=== PATIENT | male | born 1965 | race Caucasian/White ===

== ENCOUNTER → 2016-07-29 | Outpatient (REF) | payer MEDICARE ==
[~2016-07-29] MED LIST: /ACETCOD2T PO; /AMLO25TA PO; /BACL20TA PO; AUGM875T27 PO; CALCTAB52 PO; CYMB1CAP PO; FOLI1TAB86 PO; KEPP500T4 PO; LIPI20TA PO; LISI5TAB PO; MAXA5TAB10 PO; NEUR600T PO; XANA0.25 PO; XANA0.5T PO
[2016-07-29 12:46] LABS: CALCIUM LEVEL 8.6 MG/DL (8.5-10.1); CREATININE FOR GFR 1.36 MG/DL (0.70-1.30); GLOMERULAR FILTRATION RATE 58.8 (>56); MAGNESIUM LEVEL 1.9 MG/DL (1.8-2.4)
== END ==
LOC: M SFHCLERA 08:49
PROVIDERS: ATTEND Family Medicine
DX: E87.6 Hypokalemia (principal); E83.42 Hypomagnesemia

== ENCOUNTER → 2016-10-08 | Outpatient (CLI) | payer MEDICARE ==
--- NOTE | 2016-10-11 07:44 | SLEEPHOME ---
DATE OF PROCEDURE: 10/08/2016 ORDERED BY: Ember Landis Diagnostic home sleep testing was performed due to concern for the obstructive sleep apnea syndrome in this patient with a history of excessive somnolence. For testing, a NOX-T3 respiratory monitoring device was used. Continuous record was made of pulse, oxygen saturation, air flow, chest, abdominal strain and body position. 7 hours and 59 minutes of data were reviewed. 7 hours and 55 minutes were marked as time in bed. During the interval marked time in bed, there were 16 respiratory events identified of 10 seconds in duration or greater for a respiratory event index of 2. The events were more central in character. Baseline pulse rate 55 beats per minute. Pulse rate ranged 41 to 88. Baseline saturation 95%. There was one reading of saturation 84%. This may have been artifactual. Testing was performed in both the supine and nonsupine positions. IMPRESSION: Borderline home sleep test with some respiratory patterning. RECOMMENDATION: The frequency of events was insufficient to support a diagnosis of obstructive sleep apnea syndrome; however, home testing has been known to underestimate the severity of disease. If the patient's symptoms are persistent, referral for formal in-laboratory diagnostic sleep testing is more sensitive. Copy To: Dr. Jose L Russell
== END ==
LOC: M SLEEP HO 09:45
PROVIDERS: ATTEND Nurse Practitioner Adult Health
DX: G47.30 Sleep apnea, unspecified (principal)

== ENCOUNTER → 2017-05-28 | Outpatient (CLI) | payer MEDICARE | LOC: M RAD 10:40 | DX: M25.552 Pain in left hip (principal) | CPT/HCPCS: 73502 ==

== ENCOUNTER → 2017-11-17 | Outpatient (REF) | payer MEDICARE ==
[2017-11-17 20:18] LABS: HEMATOCRIT 47.5 % (42.0-52.0); HEMOGLOBIN 16.1 g/dl (13.5-17.5); MEAN CORPUSCULAR HEMOGLOBIN 32.4 pg (27.0-33.0); MEAN CORPUSCULAR HGB CONC 33.9 g/dl (32.0-36.5); MEAN CORPUSCULAR VOLUME 95.6 fl (80.0-96.0); PLATELET COUNT, AUTOMATED 275 10^3/uL (150-450); RED BLOOD COUNT 4.97 10^6/uL (4.30-6.10); RED CELL DISTRIBUTION WIDTH 12.2 % (11.5-14.5); WHITE BLOOD COUNT 8.5 10^3/uL (4.0-10.0)
[2017-11-17 20:21] LABS: ESTIMATED AVERAGE GLUCOSE 114 MG/DL (60-110); HEMOGLOBIN A1c 5.6 %
[2017-11-17 20:26] LABS: ALBUMIN 4.3 GM/DL (3.2-5.2); ALBUMIN/GLOBULIN RATIO 1.19 (1.00-1.93); ALKALINE PHOSPHATASE 103 U/L (45-117); ALT/SGPT 37 U/L (12-78); ANION GAP 9 MEQ/L (8-16); AST/SGOT 31 U/L (7-37); BILIRUBIN,TOTAL 0.4 MG/DL (0.2-1.0); BLOOD UREA NITROGEN 8 MG/DL (7-18); CALCIUM LEVEL 9.2 MG/DL (8.5-10.1); CARBON DIOXIDE LEVEL 29 MEQ/L (21-32); CHLORIDE LEVEL 103 MEQ/L (98-107); CHOLESTEROL LEVEL 267 MG/DL (<200); CHOLESTEROL RISK RATIO 7.852 (<5); CREATININE FOR GFR 1.41 MG/DL (0.70-1.30); GLUCOSE, FASTING 76 MG/DL (70-100); HDL CHOLESTEROL 34 MG/DL (>40); LDL CHOLESTEROL 159.6 MG/DL (<100); NON-HDL-C 233 MG/DL; POTASSIUM SERUM 4.7 MEQ/L (3.5-5.1); SODIUM LEVEL 141 MEQ/L (136-145); TOTAL PROTEIN 7.9 GM/DL (6.4-8.2); TRIGLYCERIDES LEVEL 367 MG/DL (<150)
[2017-11-17 20:39] LABS: CREATININE, URINE 74.2 MG/DL; MALB URINE SIEMENS 15.9 MG/L; MAU/CREAT RATIO 21.4 MCG/MG (0.0-30.0)
[2017-11-17 21:55] LABS: ERYTHROCYTE SEDIMENTATION RATE 11 mm/hr (0-20)
== END ==
LOC: M SFHCLERA 15:23
DX: I10 Essential (primary) hypertension (principal); M06.9 Rheumatoid arthritis, unspecified; M79.2 Neuralgia and neuritis, unspecified; R09.89 Other specified symptoms and signs involving the circulatory and respiratory systems
CPT/HCPCS: 84443

== ENCOUNTER → 2017-12-18 | Outpatient (REF) | payer MEDICARE ==
[2017-12-18 19:38] LABS: CPK CREATINE PHOSPHOKINASE 289 U/L (39-308)
[2017-12-18 19:38] LABS: URIC ACID 3.6 MG/DL (3.5-7.2)
[2017-12-18 20:02] LABS: ERYTHROCYTE SEDIMENTATION RATE 6 mm/hr (0-20)
[2017-12-25 00:06] LABS: ANGIOTENSIN 1 CONVERTING ENZYM 8 U/L (14-82); HLA-B27 Negative (.)
[2017-12-25 00:06] LABS: ALDOLASE 8.5 U/L (3.3-10.3)
== END ==
LOC: M SFHCLERA 09:54
DX: R76.8 Other specified abnormal immunological findings in serum (principal)
CPT/HCPCS: 82550

== ENCOUNTER → 2017-12-29 | Outpatient (REF) | payer MEDICARE ==
[2017-12-29 17:33] LABS: RHEUMATOID FACTOR QUANT < 10.0 IU/ML (<15.0)
[2018-01-01 00:08] LABS: CYCLIC CITRULLINATED PEPTIDE 13 units (0-19)
[2018-01-01 00:08] LABS: ANA (HEP2) Positive (.); ANTI DOUBLE STRAND-DNA AB 3 IU/mL (0-9); RNP ANTIBODY < 0.2 AI (0.0-0.9); SMITHS ANTIBODY < 0.2 AI (0.0-0.9); SSA SJOGRENS A <0.2 AI (0.0-0.9); SSB SJOGRENS B <0.2 AI (0.0-0.9)
== END ==
LOC: M SFHCLERA 11:03
DX: R76.8 Other specified abnormal immunological findings in serum (principal)
CPT/HCPCS: 86255

== ENCOUNTER → 2018-03-04 | Outpatient (REF) | payer MEDICARE ==
[2018-03-04 11:14] LABS: APPEARANCE, URINE CLEAR (CLEAR); BACTERIA, URINE AUTO NEGATIVE (NEGATIVE); BASO % 0.4 % (0.0-1.0); BILIRUBIN, URINE AUTO NEGATIVE (NEGATIVE); BLOOD, URINE BLOOD NEGATIVE (NEGATIVE); COLOR, URINE STRAW (YELLOW); EOS # 0.1 10^3/uL (0.0-0.50); EOS % 1.5 % (0.0-3.0); GLUCOSE, URINE (UA) AUTO NEGATIVE (NEGATIVE); HEMATOCRIT 46.7 % (42.0-52.0); IMMATURE GRANULOCYTE % 0.3 % (0-3.0); KETONE, URINE AUTO NEGATIVE (NEGATIVE); LEUKOCYTE ESTERASE, URINE AUTO NEGATIVE (NEGATIVE); LYMPH # 3.3 10^3/uL (1.5-4.5); LYMPH % 48.4 % (24.0-44.0); MEAN CORPUSCULAR HEMOGLOBIN 33.1 pg (27.0-33.0); MEAN CORPUSCULAR HGB CONC 34.3 g/dl (32.0-36.5); MEAN CORPUSCULAR VOLUME 96.5 fl (80.0-96.0); MONO # 0.8 10^3/uL (0.0-0.8); MONO % 12.3 % (0.0-5.0); NEUTROPHILS # 2.5 10^3/uL (1.8-7.7); NEUTROPHILS % 37.1 % (36.0-66.0); NITRITE, URINE AUTO NEGATIVE (NEGATIVE); PLATELET COUNT, AUTOMATED 259 10^3/uL (150-450); PROTEIN, URINE AUTO NEGATIVE (NEGATIVE); RBC, URINE AUTO 0 /HPF (0-3); RED BLOOD COUNT 4.84 10^6/uL (4.30-6.10); RED CELL DISTRIBUTION WIDTH 12.4 % (11.5-14.5); SPECIFIC GRAVITY URINE AUTO 1.005 (1.002-1.035); SQUAMOUS EPITHELIAL CELL UR AU 0 /HPF (0-6); UROBILINOGEN, URINE AUTO 0.2 mg/dL (0.0-2.0); WBC, URINE AUTO 0 /HPF (0-3); WHITE BLOOD COUNT 6.7 10^3/uL (4.0-10.0)
[2018-03-04 11:31] LABS: INR 0.88
[2018-03-04 11:32] LABS: PARTIAL THROMBOPLASTIN TIME 29.6 SECONDS (25.4-37.6)
[2018-03-04 11:49] LABS: ALBUMIN 4.1 GM/DL (3.2-5.2); ALBUMIN/GLOBULIN RATIO 1.21 (1.00-1.93); ALKALINE PHOSPHATASE 129 U/L (45-117); ALT/SGPT 63 U/L (12-78); ANION GAP 7 MEQ/L (8-16); AST/SGOT 42 U/L (7-37); BILIRUBIN,TOTAL 0.4 MG/DL (0.2-1.0); BLOOD UREA NITROGEN 13 MG/DL (7-18); CARBON DIOXIDE LEVEL 29 MEQ/L (21-32); CHLORIDE LEVEL 104 MEQ/L (98-107); CREATININE FOR GFR 1.55 MG/DL (0.70-1.30); GLOMERULAR FILTRATION RATE 50.2 (>56); GLUCOSE, FASTING 99 MG/DL (70-100); POTASSIUM SERUM 4.2 MEQ/L (3.5-5.1); SODIUM LEVEL 140 MEQ/L (136-145); TOTAL PROTEIN 7.5 GM/DL (6.4-8.2)
== END ==
LOC: M SFHCLERA 09:14
DX: Z01.818 Encounter for other preprocedural examination (principal); Z79.01 Long term (current) use of anticoagulants
CPT/HCPCS: 80053

== ENCOUNTER → 2019-01-09 | Outpatient (CLI) | payer MEDICARE ==
[~2019-01-09] MED LIST changes: -/ACETCOD2T PO; -/AMLO25TA PO; -/BACL20TA PO; +ACET1TAB15 PO; +BACL1TAB9 PO; +NORV2TAB PO
--- NOTE | 2019-01-30 11:42 | ECWPNPC ---
PATIENT NAME: JACKSON MALLORY : 1965 GENDER: MALE VISIT DATE: 01/09/2019 DISCHARGE DATE: 01/09/19 1050 VISIT LOCKED DATE TIME: PHYSICIAN: SERENA MEJIA MD RESOURCE: SERENA MEJIA MD DISCLAIMER : THIS IS A VISIT SUMMARY EXTRACTED FROM THE [employer] CHART. IT IS NOT A COPY OF THE [employer] PROGRESS NOTE. MTDD
== END ==
LOC: M PAIN 09:00
PROVIDERS: ATTEND Anesthesiology
DX: M79.18 Myalgia, other site (principal); M96.1 Postlaminectomy syndrome, not elsewhere classified; M54.6 Pain in thoracic spine; G89.29 Other chronic pain; M54.2 Cervicalgia; M54.5 Low back pain; G98.8 Other disorders of nervous system; Z87.448 Personal history of other diseases of urinary system; G62.9 Polyneuropathy, unspecified; I10 Essential (primary) hypertension; E78.5 Hyperlipidemia, unspecified; K21.9 Gastro-esophageal reflux disease without esophagitis; G47.30 Sleep apnea, unspecified; F17.210 Nicotine dependence, cigarettes, uncomplicated; Z88.5 Allergy status to narcotic agent; Z88.6 Allergy status to analgesic agent; Z91.040 Latex allergy status; Z91.041 Radiographic dye allergy status; Z79.899 Other long term (current) drug therapy

== ENCOUNTER → 2019-01-13 | Outpatient (CLI) | payer MEDICARE ==
--- NOTE | 2019-01-13 20:01 | REP ---
MRI lumbar spine without contrast: History: Back pain. Stimulator placement. Comparison study: April 20, 2014. Technique: Sagittal and axial T1 and T2-weighted scans are acquired in the usual fashion with and without fat saturation. Sequences include spin echo, turbo spin-echo, and STIR imaging sequences. MRI findings: There is a benign hemangioma in the T12 vertebral body unchanged from prior study. Cortical and medullary bone signal intensity are otherwise normal. Vertebral body heights are preserved. Alignment is normal. There is no evidence of spondylolysis or spondylolisthesis. The tip of the conus medullaris is normal in position and appearance at T12-L1. There is anterior disc bulging and osteophyte formation at the T12-L1 disc with mildly narrowed disc height. At L1-L2, there is no evidence of disc protrusion, spinal stenosis, or foraminal narrowing. No central canal stenosis is felt to be present. At L2-L3, posterior disc margin is intact. At L2-3, there is some dorsal epidural fat. The mid line AP dimension of the thecal sac is 12 mm. Borderline canal size. No other finding. At L3-4, there is mild degenerative narrowing and anterior osteophyte formation is seen. There is diffuse bulging of the posterior disc margin subtly indenting the ventral margin of the thecal sac. Borderline canal size. At L4-5, there is diffuse disc bulging. The midline AP dimension of the thecal sac is 12.6 mm. There is mild ligamentum flavum and facet hypertrophy bilaterally. No foraminal narrowing is seen. No significant spinal stenosis noted. At L5-S1, there is mild facet hypertrophy present bilaterally. No foraminal narrowing or disc protrusion is seen. No central canal stenosis seen. Impression: Borderline canal size and disc bulging as above. Ligamentum flavum and facet hypertrophy at L5-S1 bilaterally and L4-5. Electronically Signed by Paulie Ventura MD 01/16/2019 11:24 A
--- NOTE | 2019-01-13 20:45 | REP ---
MRI thoracic spine without contrast: History: Thoracic pain. For neurostimulator placement. Comparison thoracic spine MRI study is from April 20, 2014. Technique: Sagittal and axial T1 and T2-weighted scans are acquired in the usual fashion with and without fat saturation. Sequences include spin echo, turbo spin-echo, and STIR imaging sequences. MRI findings: Thoracic vertebral body heights are preserved alignment is normal. The patient is status post laminectomy and trans pedicle screw dorsal fixation jose cruz fusion bilaterally T5-T7. There is a fixation jose cruz on the left at T4 as well. There is an extra dural dorsal seroma cavity at the laminectomy site centered about the T5 level. Some magnetic field susceptibility artifact is observed from the metallic hardware. No upper thoracic disc protrusion is seen. There is evidence of a small focal disc protrusion to the right of midline at the T4-5 disc level. This may contact the thoracic cord. At T6-7, to the right of midline, there is a small right focal disc protrusion effacing the ventral subarachnoid space. This is similar to the prior study. At T7-8, there is a left paracentral focal disc protrusion flattening the ventral margin of the cord. This appears unchanged. At T8-9, there is a right posterior focal disc protrusion effacing the ventral subarachnoid space unchanged. No other thoracic disc protrusion is seen. The thoracic cord appears to be normal in coarse, caliber and signal intensity. There is a hemangioma in the T12 vertebral body. This is unchanged. Impression: Status post laminectomy and dorsal fixation jose cruz fusion T4-T7. Multiple thoracic disc protrusions are again noted unchanged. Electronically Signed by Paulie Ventura MD 01/16/2019 11:24 A
== END ==
LOC: M PLARAD 15:31
PROVIDERS: ATTEND Anesthesiology
DX: M54.14 Radiculopathy, thoracic region (principal)

== ENCOUNTER → 2019-01-19 | Outpatient (REF) | payer MEDICARE ==
[2019-01-19 16:40] LABS: BASO % 0.2 % (0.0-1.0); EOS # 0.2 10^3/uL (0.0-0.5); EOS % 2.3 % (0.0-3.0); HEMATOCRIT 45.9 % (42.0-52.0); HEMOGLOBIN 15.7 g/dl (13.5-17.5); LYMPH # 2.5 10^3/uL (1.5-5.0); MEAN CORPUSCULAR HEMOGLOBIN 33.1 pg (27.0-33.0); MEAN CORPUSCULAR HGB CONC 34.2 g/dl (32.0-36.5); MEAN CORPUSCULAR VOLUME 96.6 fl (80.0-96.0); MONO # 1.1 10^3/uL (0.0-0.8); MONO % 13.2 % (0.0-5.0); NEUTROPHILS # 4.4 10^3/uL (1.5-8.5); NEUTROPHILS % 53.9 % (36.0-66.0); PLATELET COUNT, AUTOMATED 237 10^3/uL (150-450); RED BLOOD COUNT 4.75 10^6/uL (4.30-6.10); WHITE BLOOD COUNT 8.2 10^3/uL (4.0-10.0)
[2019-01-19 16:49] LABS: HEMOGLOBIN A1c 5.8 %
[2019-01-19 17:16] LABS: ALBUMIN 3.9 GM/DL (3.2-5.2); BILIRUBIN,TOTAL 0.5 MG/DL (0.2-1.0); CALCIUM LEVEL 8.5 MG/DL (8.5-10.1); CHOLESTEROL RISK RATIO 7.031 (<5); CREATININE FOR GFR 1.52 MG/DL (0.70-1.30); GLOMERULAR FILTRATION RATE 51.1 (>56); POTASSIUM SERUM 4.5 MEQ/L (3.5-5.1); THYROID STIMULATING HORMONE 2.92 uIU/ML (0.358-3.740); TOTAL PROTEIN 7.3 GM/DL (6.4-8.2)
== END ==
LOC: M SFHCLERA 13:55
PROVIDERS: ATTEND Family Medicine
DX: I10 Essential (primary) hypertension (principal)

== ENCOUNTER → 2019-02-28 | Outpatient (CLI) | payer MEDICARE ==
[~2019-02-28] MED LIST changes: +BUPIVACAINE HCL 0.25% 10 ML VIAL As Ordered ONE; +BUPIVACAINE HCL 0.25% 30 ML VIAL As Ordered ONE; +TRIAMCINOLONE ACETONIDE SUSP 40 MG/ML VIAL (J3301) As Ordered ONE
--- NOTE | 2019-03-07 03:55 | ECWPNPC ---
PATIENT NAME: JACKSON MALLORY : 1965 GENDER: MALE VISIT DATE: 02/28/2019 DISCHARGE DATE: 02/28/19 1426 VISIT LOCKED DATE TIME: PHYSICIAN: SERENA MEJIA MD RESOURCE: SERENA MEJIA MD REASON FOR APPOINTMENT 1. TPI HISTORY OF PRESENT ILLNESS HISTORY OF PRESENT ILLNESS: PAIN THE PATIENT DESCRIBES THE PAIN... FALL RISK SCREENING: SCREENING :NO FALLS REPORTED IN THE LAST YEAR CURRENT MEDICATIONS TAKING VITAMIN B12 1000 MG TABLET 1 TABLET ORALLY ONCE A DAY IN THE EVENING, NOTES: 799 TAKING MAGNESIUM OXIDE 400 MG TABLET 1 TAB ORALLY BID, NOTES: 02-28-19799 TAKING GABAPENTIN 600MG TAB 1 TABLET ORALLY BID, NOTES: 02-28 TAKING FOLIC ACID 1 MG TABLET 1 TAB ORALLY IN THE EVENING, NOTES: 02-27-192099 TAKING CALCIUM + D 500-1000-40 MG-UNT-MCG TABLET CHEWABLE DIRECTED ORALLY , NOTES: 899 TAKING VIRT-PHOS 250 NEUTRAL 155-852-130 MG TABLET 1 TABLET ORALLY BID, NOTES: 02-28-19799 TAKING AMILORIDE HCL 5 MG TABLET 2 TABS ORALLY ONCE A DAY, NOTES: NEPHROLOGY 02-28-19799 TAKING RANITIDINE HCL 150 MG TABLET TAKE 1 TABLET BY MOUTH TWICE A DAY ORALLY BID, NOTES: 02-28-19699 TAKING PANTOPRAZOLE SODIUM 40 DELAYED RELEASE TABLET 1 TAB ORALLY BID, NOTES: 02-28-19799 TAKING AMLODIPINE BESYLATE 5 TABLET TAKE 1 TABLET BY MOUTH EVERY DAY , NOTES: 02-27-19899 TAKING LISINOPRIL 10 MG TABLET TAKE 1 TABLET BY MOUTH EVERY DAY ORALLY NOT-TAKING TRAMADOL HCL 50 MG TABLET 1 TABLET NEEDED ORALLY THREE TIMES DAILY NEEDED NOT-TAKING LISINOPRIL 20 MG TABLET 1 TABLET ORALLY ONCE A DAY, NOTES: 02-28-19699 NOT-TAKING NORTRIPTYLINE HCL 50 CAPSULE TAKE 1 CAPSULE BY MOUTH ONCE DAILY NOT-TAKING CAPSAICIN 0.025 % CREAM 1 APPLICATION TO AFFECTED AREA NEEDED EXTERNALLY THREE TIMES A DAY NOT-TAKING NORTRIPTYLINE HCL 50 MG CAPSULE 1 CAPSULE ORALLY ONCE A DAY NOT-TAKING PROMETHAZINE HCL 25 MG TABLET 1 TABLET NEEDED ORALLY EVERY 12 HRS NOT-TAKING VITAMIN D3 2000 UNIT CAPSULE 1 CAPSULE ORALLY IN THE EVENING NOT-TAKING ZOFRAN ODT 4 MG TABLET DISPERSIBLE 1 TABLET ON THE TONGUE AND ALLOW TO DISSOLVE FOR 2 DOSES ORALLY EVERY 8 HRS NOT-TAKING POTASSIUM PHOSPHATE MONOBASIC 500 MG TABLET 1 TAB ORALLY BID NOT-TAKING ZANTAC 150 MG TABLET 1 TABLET ORALLY TWICE A DAY NOT-TAKING HYDROCODONE-ACETAMINOPHEN 10-325 MG TABLET 1 TABLET NEEDED ORALLY EVERY 6 HRS (MDD 4) NOT-TAKING METHOCARBAMOL 750 MG TABLET 1 TABLET PRN ORALLY EVERY 4 HRS NOT-TAKING LIDODERM 5 % PATCH 1 PATCH TO SKIN REMOVE AFTER 12 HOURS EXTERNALLY ONCE A DAY, NOTES: DX G62.9 NOT-TAKING OXYGEN . . 3 LITRES OXYGEN VIA NC (DX. R09.02) NASAL CANNULA DAILY DIRECTED FOR 24 HOURS, PLEASE PROVIDE PORTABLE OXYGEN NOT-TAKING LISINOPRIL 10 MG TABLET 1 TABLET ONCE A DAY IN THE EVENING ORALLY 90 DAYS MEDICATION LIST REVIEWED AND RECONCILED WITH THE PATIENT PAST MEDICAL HISTORY NEUROLOGICAL DISORDERS: : HE HAS BEEN EVALUATED BY 3 NEUROLOGISTS AT [place] [facility] AND HIS MOST RECENT LOCAL NEUROLOGIST'S EVALUATION SUGGESTS THAT HIS SYMPTOMS ARE BEHAVIORAL IN NATURE, OR POSSIBLY CONVERSION DISORDER. HE REJECTS EITHER OF THESE POSSIBILIITIES. NO OBJECTIVE DIAGNOSIS HAS BEEN RULED IN. NEUROPATHY HYPERTENSION HYPERLIPIDEMIA SEIZURES: HE DENIES THIS DIAGNOSIS AND IT IS NOT LISTED AN ACTIVE DISEASE IN HIS NEUROLOGIST'S NOTES, NOR IS HE ON ANTIEPLEPTICS (EXCEPT GABAPENTIN, WHICH HAS BEEN PRESCRIBED FOR NEUROPATHIC PAIN) RHEUMATOLOGIC EVALUATIONS: HE REPORTS BEING EVALUATED BY DR. GOMEZ IN YEARS PAST AND TOLD "I'VE GOT RA BUT THERE'S NOTHING TO BE DONE AND GO BACK AND SEE YOU NEUROLOGIST" . HE WAS EVALUATED BY [facility] RHEUMATOLOGY DR. 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 ESOPHAGEAL REFLUX: EVALUATED IN THE PAST BY GI DR. DONOVAN, ON 40MG BID PROTONIX AND RANIDITINE CHRONICALLY. ABDOMINAL PAIN SLEEP APNEA CKDIII: STABLE, FOLLOWS 2X/YEAR WITH NEPHROLOGY CHRONIC BACK PAIN ALLERGIES CT SCAN DYE: FEET AND HANDS SWELL, RASH - ALLERGY LATEX: HIVES - ALLERGY DILAUDID: FACIAL & THROAT SWELLING, RED - ALLERGY IBUPROFEN: FACIAL SWELLING, RASH - ALLERGY SURGICAL HISTORY UMBILLICAL HERNIA 2010 VASECTOMY 2009 COLONOSCOPY, EGD 2012 (CLEAR COLONOSCOPY, ENDOSCOPY SHOWED THINNING TO LINNING) SPINAL BACK SURGERY 03/2018 FAMILY HISTORY FATHER: 75 YRS, UNKNOWN, DIAGNOSED WITH DIABETES MOTHER: ALIVE, DM, DIABETES SIBLINGS: BROTHER # 1 DM BROTHERS HAVE NEUROLOGICAL PROBLEMS SISTERS DM, OLDER SISTER CANCER UNKNOWN TYPE, DIABETES 4 BROTHER(S) , 4 SISTER(S) . 1 SON(S) , 1 DAUGHTER(S) . DM BROTHER, MOTHER, SISTERSNEUROLOGICAL PROBLEMS IN 2 BROTHERS, NO KNOWN FAMILY HISTORY OF ANY UROLOGICALLY RELATED DISEASES/CANCERS. SOCIAL HISTORY GENERAL: TOBACCO USE ARE YOU A:FORMER SMOKER HOW LONG HAS IT BEEN SINCE YOU LAST SMOKED?> 10 YEARS HIV / HEP-C SCREENING HIV TEST OFFERED TO PATIENT:YES DATE OFFERED:03/09/2018 TEST ACCEPTED:NO HEP-C TEST OFFERED TO PATIENT:YES DATE OFFERED:03/09/2018 REASON:PATIENT DECLINED TEST ACCEPTED:NO REASON:PATIENT DECLINED BROCHURE PROVIDED TO PATIENTYES OTHERS AT HOME: YES, SPOUSE, CHILDREN. HOUSING: HOUSE. EDUCATION LEVEL OF EDUCATION:HIGH SCHOOL DIET: REGULAR. LANGUAGE LANGUAGES SPOKEN:BURUNDIAN DOMESTIC VIOLENCE DO YOU FEEL SAFE IN YOUR ENVIRONMENT?YES BMI CARE GOAL FOLLOW-UP ABOVE NORMAL BMI FOLLOW-UPDIETARY MANAGEMENT EDUCATION, GUIDANCE, AND COUNSELING RECREATIONAL DRUG USE: NEVER DRUG USE?NO EXERCISE: NO REGULAR EXERCISE. LEARNING BARRIERS / SPECIAL NEEDS CHANGE FROM LAST VISIT?NO BARRIERS TO LEARNING?NO HEARING IMPAIRED?NO VISION IMPAIRED?NO COGNITIVELY IMPAIRED?NO READINESS TO LEARN?YES LEARNING PREFERENCES?NO LEARNING CAPABILITIES PRESENT?YES EMOTIONAL BARRIERS?NO SPECIAL DEVICES?NO MARKETING SYSTEMS MANAGER NEEDED?NO LUNG CANCER SCREENING SMOKING STATUS:FORMER SMOKER PAIN CLINIC PFS, CLERGY, PUBLIC HEALTH REFERRALS HAS THE PATIENT BEEN EDUCATED REGARDING HIS/HER PLAN OF CARE?YES HAS THE PATIENT BEEN EDUCATED REGARDING PAIN, THE RISK FOR PAIN, THE IMPORTANCE OF EFFECTIVE PAIN MANAGEMENT, AND THE PAIN ASSESSMENT PROCESS?YES LATEX QUESTIONNAIRE LATEX ALLERGY : HAVE YOU EVER DEVELOPED ANY TYPE OF REACTION AFTER HANDLING LATEX PRODUCTS SUCH RUBBER GLOVES, CONDOMS, DIAPHRAGMS, BALLOONS, SOCKS, OR UNDERWEAR?NO LATEX ALLERGY : HAVE YOU EVER DEVELOPED ANY TYPE OF REACTION DURING OR AFTER DENTAL APPOINTMENT, VAGINAL/RECTAL EXAMINATION, SURGICAL PROCEDURE, OR ANY OTHER EXPOSURE?NO DATE ASKED : 01/09/2019 LATEX RISK : HAVE YOU EVER HAD ANY DIFFICULTY BREATHING OR HIVES AFTER EATING OR HANDLING ANY FRUITS, OR VEGETABLES; SUCH KIWI, BANANAS, STONE FRUITS, OR CHESTNUTSNO LATEX RISK : DO YOU HAVE A PREVIOUS PERSONAL HISTORY OF MORE THAN NINE SURGERIES, SPINA BIFIDA, OR REPEATED CATHERIZATIONS? NO LATEX RISK : ARE YOU FREQUENTLY EXPOSED TO LATEX PRODUCTS IN YOUR OCCUPATION?NO CAFFEINE: YES REPORTS 1-2 CUPS PER DAY. ADVANCE DIRECTIVE ADVANCE DIRECTIVE DISCUSSED WITH PATIENT:YES PT DOES NOT HAVE HCP AND DECLINES INFORMATION TODAY 01/09/19 RESTORATION [id number] NONE MARITAL STATUS: . ALCOHOL SCREENING POINTS: 7, INTERPRETATION: POSITIVE. OCCUPATION: RETIRED. SEXUAL HX HAD SEX IN THE LAST 12 MONTHS (VAGINAL, ORAL, OR ANAL)?YES WITHWOMEN ONLY USE PROTECTION?NO HAVE YOU EVER HAD AN STD?NO REVIEWED WITH PATIENT 01/09/19 0974 BV. HOSPITALIZATION/MAJOR DIAGNOSTIC PROCEDURE SYNCOPE 07/23 DIVERTICULITIS 06/22 REVIEW OF SYSTEMS REVIEWED BY: PROVIDER: . CONSTITUTIONAL: ANY CHANGE IN YOUR MEDICAL CONDITION? NO . CHILLS NO . FEVER NO . INFECTION: DO YOU HAVE NEW INFECTIONS? NO . DO YOU HAVE HISTORY OF MRSA? NO . MUSCULOSKELETAL: ANY NEW PATTERNS OF PAIN OR NUMBNESS? NO . GASTROENTEROLOGY: ANY NEW CHANGE IN BOWEL CONTROL? NO . GENITOURINARY: ANY NEW CHANGE IN BLADDER CONTROL? NO . IS THERE A CHANCE YOU COULD BE ? NO . HEMATOLOGY/LYMPH: DO YOU TAKE ANY BLOOD THINNERS? (FOR EXAMPLE- COUMADIN, PLAVIX, AGGRENOX, PLATEL, PRADAXA, OR XARELTO) NO . WHEN WAS YOUR LAST DOSE? DATE: TIME: . NEUROLOGY: HAVE YOU FALLEN IN THE PAST 12 MONTHS? NO . ANY NEW EXTREMITY NUMBNESS OR WEAKNESS? NO . CARDIOLOGY: DO YOU HAVE A PACEMAKER OR DEFIBRILLATOR? NO . RESPIRATORY: HAVE YOU BEEN SICK IN THE PAST WEEK? NO . FEVER NO . FLU LIKE SYMPTOMS? NO . COUGH NO . INTEGUMENTARY: DO YOU HAVE ANY RASHES OR OPEN SORES? NO . ALLERGIC/IMMUNO: ARE YOU ALLERGIC TO IV DYE? YES . ANY NEW ALLERGIES? NO . PSYCHIATRIC: DO YOU HAVE THOUGHTS OF HURTING YOURSELF OR SOMEONE ELSE? NO . ARE YOU ABUSED, NEGLECTED, OR IN AN UNSAFE ENVIRONMENT? NO . ENDOCRINOLOGY: ARE YOU DIABETIC? NO . OTHER: DO YOU NEED ANY PRESCRIPTIONS? NO . IF YES, PLEASE LIST: ____ . ANY NEW PROBLEMS WITH YOUR MEDICATIONS? NO . WHEN DID YOU LAST EAT? ____[id number] 1800 . WHEN DID YOU LAST DRINK? ____[id number] 2100 . WHAT DID YOU LAST DRINK? ____WATER . NAME OF PERSON DRIVING YOU HOME? ____ . DO YOU HAVE ANY OTHER QUESTIONS OR CONCERNS PIERCE . +. VITAL SIGNS WT 251.0 LBS, HT 74.5 IN, BMI 31.79 INDEX, BP 135/84 MM HG, HR 60 /MIN, RR 18 /MIN, TEMP 97.1 F, OXYGEN SAT % 98%, SAFE IN ENV? (Y/N) YES, NA INITIALS AW 1135, REVIEWED BY: KG. ASSESSMENTS MYALGIA, OTHER SITE - M79.18 (PRIMARY) PROCEDURES PN TRIGGER POINT INJECTION WITH STEROIDS PRE PROCEDURE DIAGNOSIS 1. MYALGIA 2. PAIN AT RIGHT SHOULDER AREA AND BILATERAL LOW BACK AREA. POST PROCEDURE DIAGNOSIS 1. MYALGIA 2. PAIN AT RIGHT SHOULDER AREA AND BILATERAL LOW BACK AREA. PROCEDURE TRIGGER POINT INJECTION AT RIGHT SHOULDER AREA AND RIGHT AND LEFT LOW BACK AREA. SURGEON DR. 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 I EVALUATED THE PATIENT AND REVIEWED THE CHART. THERE IS EVIDENCE OF BANDS OF TISSUE WITH RESTRICTION OF MOVEMENT AND PRESENCE OF TRIGGER POINT AT THE AFFECTED AREA. I WENT OVER THE RISKS, ALTERNATIVES, AND BENEFITS ASSOCIATED WITH THIS PROCEDURE. THE PATIENT WOULD LIKE TO PROCEED AND GIVES CONSENT TO PERFORM THE PROCEDURE. THE PATIENT DENIES UNEXPLAINABLE WEIGHT LOSS, FEVER, CHILLS, OR NEW CHANGES IN URINARY OR BOWEL CONTROL DESCRIPTION OF PROCEDURE THE PATIENT WAS BROUGHT TO THE PROCEDURE ROOM AND PLACED IN THE LEFT DECUBITUS POSITION. THE AREA WAS CLEANED WITH ALCOHOL. THE PROCEDURE WAS DONE USING ASEPTIC STERILE TECHNIQUE. I CHECKED LATERALITY AND THE LEVEL WHERE THE PROCEDURE WAS GOING TO BE PERFORMED WITH THE PATIENT AND THE SUPPORTING STAFF AT THE MOMENT OF THE TIME OUT IN THE PROCEDURE ROOM. USING A 25-GAUGE NEEDLE, TRIGGER POINTS WERE INJECTED AT THE RIGHT SHOULDER AREA AND RIGHT AND LEFT LOW BACK AREA WITH A TOTAL OF 40 ML OF BUPIVACAINE 0.25% AND KENALOG 40 MG. THERE WAS NO EVIDENCE OF BLOOD, PARESTHESIA OR CEREBROSPINAL FLUID DURING THE PROCEDURE. THE PATIENT WAS SENT TO THE RECOVERY ROOM. THE PATIENT WAS MOVING THE EXTREMITIES AND DOING WELL. THERE WAS NO COMPLICATION DURING THE PROCEDURE POST PROCEDURE NOTE THE PATIENT WILL BE SEEN IN A FOLLOW UP IN THE NEXT FEW WEEKS. THE PATIENT WILL NEED AN IV FOR ANY FUTURE PROCEDURES. INSTRUCTIONS WERE GIVEN, QUESTIONS WERE ANSWERED, AND THE PATIENT EXPRESSED UNDERSTANDING AND AGREES WITH THE PLAN. I, ROM RODRIGUEZ, DOCUMENTED THE ABOVE INFORMATION ACTING A SCRIBE FOR DR. MEJIA. I HAVE REVIEWED THE ABOVE DOCUMENT, WRITTEN BY ROM RODRIGUEZ SCRIBE AND I VERIFY THAT IT IS ACCURATE. PROCEDURE CODES 06889 INJECT TRIGGER POINTS 3/> DISPOSITION & COMMUNICATION FOLLOW UP 3 WEEKS ELECTRONICALLY SIGNED BY SERENA MEJIA MD, MD ON 03/06/2019 AT 01:58 PM EST DISCLAIMER : THIS IS A VISIT SUMMARY EXTRACTED FROM THE [employer] CHART. IT IS NOT A COPY OF THE [employer] PROGRESS NOTE. LIZBETH
== END ==
LOC: M PAIN 11:45
PROVIDERS: ATTEND Anesthesiology
DX: M79.18 Myalgia, other site (principal)
CPT/HCPCS: 20553; J3301

== ENCOUNTER → 2019-03-31 | Outpatient (CLI) | payer MEDICARE ==
[~2019-03-31] MED LIST changes: -BUPIVACAINE HCL 0.25% 10 ML VIAL As Ordered ONE; -BUPIVACAINE HCL 0.25% 30 ML VIAL As Ordered ONE; -TRIAMCINOLONE ACETONIDE SUSP 40 MG/ML VIAL (J3301) As Ordered ONE
--- NOTE | 2019-04-04 01:28 | ECWPNPC ---
PATIENT NAME: JACKSON MALLORY : 1965 GENDER: MALE VISIT DATE: 03/31/2019 DISCHARGE DATE: 03/31/19 1450 VISIT LOCKED DATE TIME: PHYSICIAN: BETSY ABARCA RESOURCE: BETSY ABARCA REASON FOR APPOINTMENT 1. POST TPI HISTORY OF PRESENT ILLNESS GENERAL: 53-YEAR-OLD MALE IN FOR POST TPI FOLLOW-UP. HE FEELS THE PROCEDURE WAS HELPFUL FOR HIS SHOULDER BUT IS UNSURE IF IT HELPED HIS BACK AT ALL. HE RATES HIS PAIN PREPROCEDURE AT AN 8 OUT OF 10 AND POSTPROCEDURE AT A 5 OUT OF 10. HE RATES HIS PAIN CURRENTLY AT A 6 OUT OF 10 AND DESCRIBES IT ACHING, SHARP, BURNING, SORE, SHOOTING, AND TENDER. HISTORY OF PRESENT ILLNESS: PAIN THE PATIENT DESCRIBES THE PAIN... FALL RISK SCREENING: SCREENING :NO FALLS REPORTED IN THE LAST YEAR CURRENT MEDICATIONS TAKING VITAMIN B12 1000 MG TABLET 1 TABLET ORALLY ONCE A DAY IN THE EVENING, NOTES: 799 TAKING MAGNESIUM OXIDE 400 MG TABLET 1 TAB ORALLY BID, NOTES: 02-28-19799 TAKING GABAPENTIN 600MG TAB 1 TABLET ORALLY BID, NOTES: 02-28 TAKING FOLIC ACID 1 MG TABLET 1 TAB ORALLY IN THE EVENING, NOTES: 02-27-19 2100 TAKING CALCIUM + D 500-1000-40 MG-UNT-MCG TABLET CHEWABLE DIRECTED ORALLY , NOTES: 899 TAKING VIRT-PHOS 250 NEUTRAL 155-852-130 MG TABLET 1 TABLET ORALLY BID, NOTES: 02-28-19799 TAKING AMILORIDE HCL 5 MG TABLET 2 TABS ORALLY ONCE A DAY, NOTES: NEPHROLOGY 02-28-19799 TAKING RANITIDINE HCL 150 MG TABLET TAKE 1 TABLET BY MOUTH TWICE A DAY ORALLY BID, NOTES: 02-28-19699 TAKING PANTOPRAZOLE SODIUM 40 DELAYED RELEASE TABLET 1 TAB ORALLY BID, NOTES: 02-28-19799 TAKING PANTOPRAZOLE SODIUM 40 MG TABLET DELAYED RELEASE TAKE 1 TABLET BY MOUTH EVERY DAY TAKING AMLODIPINE BESYLATE 5 TABLET TAKE 1 TABLET BY MOUTH EVERY DAY TAKING LISINOPRIL 10 MG TABLET 1 TABLET ORALLY ONCE A DAY TAKING MAY USE MEDICAL MARIJUANA NOT-TAKING TRAMADOL HCL 50 MG TABLET 1 TABLET NEEDED ORALLY THREE TIMES DAILY NEEDED NOT-TAKING LISINOPRIL 20 MG TABLET 1 TABLET ORALLY ONCE A DAY, NOTES: 02-28-19 0700 NOT-TAKING NORTRIPTYLINE HCL 50 CAPSULE TAKE 1 CAPSULE BY MOUTH ONCE DAILY NOT-TAKING CAPSAICIN 0.025 % CREAM 1 APPLICATION TO AFFECTED AREA NEEDED EXTERNALLY THREE TIMES A DAY NOT-TAKING NORTRIPTYLINE HCL 50 MG CAPSULE 1 CAPSULE ORALLY ONCE A DAY NOT-TAKING PROMETHAZINE HCL 25 MG TABLET 1 TABLET NEEDED ORALLY EVERY 12 HRS NOT-TAKING VITAMIN D3 2000 UNIT CAPSULE 1 CAPSULE ORALLY IN THE EVENING NOT-TAKING ZOFRAN ODT 4 MG TABLET DISPERSIBLE 1 TABLET ON THE TONGUE AND ALLOW TO DISSOLVE FOR 2 DOSES ORALLY EVERY 8 HRS NOT-TAKING POTASSIUM PHOSPHATE MONOBASIC 500 MG TABLET 1 TAB ORALLY BID NOT-TAKING ZANTAC 150 MG TABLET 1 TABLET ORALLY TWICE A DAY NOT-TAKING HYDROCODONE-ACETAMINOPHEN 10-325 MG TABLET 1 TABLET NEEDED ORALLY EVERY 6 HRS (MDD 4) NOT-TAKING METHOCARBAMOL 750 MG TABLET 1 TABLET PRN ORALLY EVERY 4 HRS NOT-TAKING LIDODERM 5 % PATCH 1 PATCH TO SKIN REMOVE AFTER 12 HOURS EXTERNALLY ONCE A DAY, NOTES: DX G62.9 NOT-TAKING OXYGEN . . 3 LITRES OXYGEN VIA NC (DX. R09.02) NASAL CANNULA DAILY DIRECTED FOR 24 HOURS, PLEASE PROVIDE PORTABLE OXYGEN NOT-TAKING LISINOPRIL 10 MG TABLET 1 TABLET ONCE A DAY IN THE EVENING ORALLY 90 DAYS MEDICATION LIST REVIEWED AND RECONCILED WITH THE PATIENT PAST MEDICAL HISTORY NEUROLOGICAL DISORDERS: : HE HAS BEEN EVALUATED BY 3 NEUROLOGISTS AT [place] AND HIS MOST RECENT LOCAL NEUROLOGIST'S EVALUATION SUGGESTS THAT HIS SYMPTOMS ARE BEHAVIORAL IN NATURE, OR POSSIBLY CONVERSION DISORDER. HE REJECTS EITHER OF THESE POSSIBILIITIES. NO OBJECTIVE DIAGNOSIS HAS BEEN RULED IN. NEUROPATHY HYPERTENSION HYPERLIPIDEMIA SEIZURES: HE DENIES THIS DIAGNOSIS AND IT IS NOT LISTED AN ACTIVE DISEASE IN HIS NEUROLOGIST'S NOTES, NOR IS HE ON ANTIEPLEPTICS (EXCEPT GABAPENTIN, WHICH HAS BEEN PRESCRIBED FOR NEUROPATHIC PAIN) RHEUMATOLOGIC EVALUATIONS: HE REPORTS BEING EVALUATED BY DR. GOMEZ IN YEARS PAST AND TOLD "I'VE GOT RA BUT THERE'S NOTHING TO BE DONE AND GO BACK AND SEE YOU NEUROLOGIST" . HE WAS EVALUATED BY [facility] RHEUMATOLOGY DR. 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 ESOPHAGEAL REFLUX: EVALUATED IN THE PAST BY GI DR. DONOVAN, ON 40MG BID PROTONIX AND RANIDITINE CHRONICALLY. ABDOMINAL PAIN SLEEP APNEA CKDIII: STABLE, FOLLOWS 2X/YEAR WITH NEPHROLOGY CHRONIC BACK PAIN ALLERGIES CT SCAN DYE: FEET AND HANDS SWELL, RASH - ALLERGY LATEX: HIVES - ALLERGY DILAUDID: FACIAL & THROAT SWELLING, RED - ALLERGY IBUPROFEN: FACIAL SWELLING, RASH - ALLERGY SURGICAL HISTORY UMBILLICAL HERNIA 2009 VASECTOMY 2009 COLONOSCOPY, EGD 2012 (CLEAR COLONOSCOPY, ENDOSCOPY SHOWED THINNING TO LINNING) SPINAL BACK SURGERY 03/2018 FAMILY HISTORY FATHER: 75 YRS, UNKNOWN, DIAGNOSED WITH DIABETES MOTHER: ALIVE, DM, DIABETES SIBLINGS: BROTHER # 1 DM BROTHERS HAVE NEUROLOGICAL PROBLEMS SISTERS DM, OLDER SISTER CANCER UNKNOWN TYPE, DIABETES 4 BROTHER(S) , 4 SISTER(S) . 1 SON(S) , 1 DAUGHTER(S) . DM BROTHER, MOTHER, SISTERSNEUROLOGICAL PROBLEMS IN 2 BROTHERS, NO KNOWN FAMILY HISTORY OF ANY UROLOGICALLY RELATED DISEASES/CANCERS. SOCIAL HISTORY GENERAL: TOBACCO USE ARE YOU A:FORMER SMOKER HOW LONG HAS IT BEEN SINCE YOU LAST SMOKED?> 10 YEARS HIV / HEP-C SCREENING HIV TEST OFFERED TO PATIENT:YES DATE OFFERED:03/09/2018 TEST ACCEPTED:NO HEP-C TEST OFFERED TO PATIENT:YES DATE OFFERED:03/09/2018 REASON:PATIENT DECLINED TEST ACCEPTED:NO REASON:PATIENT DECLINED BROCHURE PROVIDED TO PATIENTYES OTHERS AT HOME: YES, SPOUSE, CHILDREN. HOUSING: HOUSE. EDUCATION LEVEL OF EDUCATION:HIGH SCHOOL DIET: REGULAR. LANGUAGE LANGUAGES SPOKEN:MICRONESIAN DOMESTIC VIOLENCE DO YOU FEEL SAFE IN YOUR ENVIRONMENT?YES BMI CARE GOAL FOLLOW-UP ABOVE NORMAL BMI FOLLOW-UPDIETARY MANAGEMENT EDUCATION, GUIDANCE, AND COUNSELING RECREATIONAL DRUG USE: NEVER DRUG USE?NO EXERCISE: NO REGULAR EXERCISE. LEARNING BARRIERS / SPECIAL NEEDS CHANGE FROM LAST VISIT?NO BARRIERS TO LEARNING?NO HEARING IMPAIRED?NO VISION IMPAIRED?NO COGNITIVELY IMPAIRED?NO READINESS TO LEARN?YES LEARNING PREFERENCES?NO LEARNING CAPABILITIES PRESENT?YES EMOTIONAL BARRIERS?NO SPECIAL DEVICES?NO TECHNICAL SOLUTIONS DIRECTOR NEEDED?NO LUNG CANCER SCREENING SMOKING STATUS:FORMER SMOKER PAIN CLINIC PFS, CLERGY, PUBLIC HEALTH REFERRALS HAS THE PATIENT BEEN EDUCATED REGARDING HIS/HER PLAN OF CARE?YES HAS THE PATIENT BEEN EDUCATED REGARDING PAIN, THE RISK FOR PAIN, THE IMPORTANCE OF EFFECTIVE PAIN MANAGEMENT, AND THE PAIN ASSESSMENT PROCESS?YES LATEX QUESTIONNAIRE LATEX ALLERGY : HAVE YOU EVER DEVELOPED ANY TYPE OF REACTION AFTER HANDLING LATEX PRODUCTS SUCH RUBBER GLOVES, CONDOMS, DIAPHRAGMS, BALLOONS, SOCKS, OR UNDERWEAR?NO LATEX ALLERGY : HAVE YOU EVER DEVELOPED ANY TYPE OF REACTION DURING OR AFTER DENTAL APPOINTMENT, VAGINAL/RECTAL EXAMINATION, SURGICAL PROCEDURE, OR ANY OTHER EXPOSURE?NO DATE ASKED : 01/09/2019 LATEX RISK : HAVE YOU EVER HAD ANY DIFFICULTY BREATHING OR HIVES AFTER EATING OR HANDLING ANY FRUITS, OR VEGETABLES; SUCH KIWI, BANANAS, STONE FRUITS, OR CHESTNUTSNO LATEX RISK : DO YOU HAVE A PREVIOUS PERSONAL HISTORY OF MORE THAN NINE SURGERIES, SPINA BIFIDA, OR REPEATED CATHERIZATIONS? NO LATEX RISK : ARE YOU FREQUENTLY EXPOSED TO LATEX PRODUCTS IN YOUR OCCUPATION?NO CAFFEINE: YES REPORTS 1-2 CUPS PER DAY. ADVANCE DIRECTIVE ADVANCE DIRECTIVE DISCUSSED WITH PATIENT:YES PT DOES NOT HAVE HCP AND DECLINES INFORMATION TODAY 03/31/19 ANGLICAN [id number] NONE MARITAL STATUS: . ALCOHOL SCREENING POINTS: 7, INTERPRETATION: POSITIVE. OCCUPATION: RETIRED. SEXUAL HX HAD SEX IN THE LAST 12 MONTHS (VAGINAL, ORAL, OR ANAL)?YES WITHWOMEN ONLY USE PROTECTION?NO HAVE YOU EVER HAD AN STD?NO REVIEWED WITH PATIENT 01/09/19 0925 BVREVIEWED WITH PATIENT 03/31/19 LAS. HOSPITALIZATION/MAJOR DIAGNOSTIC PROCEDURE SYNCOPE 07/23 DIVERTICULITIS 06/22 REVIEW OF SYSTEMS REVIEWED BY: PROVIDER: JEF LAIRD-C . CONSTITUTIONAL: ANY CHANGE IN YOUR MEDICAL CONDITION? NO . CHILLS NO . FEVER NO . INFECTION: DO YOU HAVE NEW INFECTIONS? NO . DO YOU HAVE HISTORY OF MRSA? NO . MUSCULOSKELETAL: ANY NEW PATTERNS OF PAIN OR NUMBNESS? NO . GASTROENTEROLOGY: ANY NEW CHANGE IN BOWEL CONTROL? NO . GENITOURINARY: ANY NEW CHANGE IN BLADDER CONTROL? NO . IS THERE A CHANCE YOU COULD BE ? NO . HEMATOLOGY/LYMPH: DO YOU TAKE ANY BLOOD THINNERS? (FOR EXAMPLE- COUMADIN, PLAVIX, AGGRENOX, PLATEL, PRADAXA, OR XARELTO) NO . WHEN WAS YOUR LAST DOSE? DATE: TIME: . NEUROLOGY: HAVE YOU FALLEN IN THE PAST 12 MONTHS? NO . ANY NEW EXTREMITY NUMBNESS OR WEAKNESS? NO . CARDIOLOGY: DO YOU HAVE A PACEMAKER OR DEFIBRILLATOR? NO . RESPIRATORY: HAVE YOU BEEN SICK IN THE PAST WEEK? NO . FEVER NO . FLU LIKE SYMPTOMS? NO . COUGH NO . INTEGUMENTARY: DO YOU HAVE ANY RASHES OR OPEN SORES? NO . ALLERGIC/IMMUNO: ARE YOU ALLERGIC TO IV DYE? YES . ANY NEW ALLERGIES? NO . PSYCHIATRIC: DO YOU HAVE THOUGHTS OF HURTING YOURSELF OR SOMEONE ELSE? NO . ARE YOU ABUSED, NEGLECTED, OR IN AN UNSAFE ENVIRONMENT? NO . ENDOCRINOLOGY: ARE YOU DIABETIC? NO . OTHER: DO YOU NEED ANY PRESCRIPTIONS? NO . IF YES, PLEASE LIST: ____ . ANY NEW PROBLEMS WITH YOUR MEDICATIONS? NO . WHEN DID YOU LAST EAT? ____ . WHEN DID YOU LAST DRINK? ____ . WHAT DID YOU LAST DRINK? ____ . NAME OF PERSON DRIVING YOU HOME? ____ . DO YOU HAVE ANY OTHER QUESTIONS OR CONCERNS NO . VITAL SIGNS WT 248.2 LBS, HT 74.5 IN, BMI 31.44 INDEX, BP 141/77 MM HG, HR 54 /MIN, RR 18 /MIN, TEMP 98.0 F, OXYGEN SAT % 97%, SAFE IN ENV? (Y/N) YES, NA INITIALS AW 1419, REVIEWED BY: ADALI. EXAMINATION GENERAL EXAMINATION: GENERALNO ACUTE DISTRESS, WELL NOURISHED AND HYDRATED. PSYCHAPPROPRIATE MOOD AND AFFECT . LUNGS:CLEAR TO AUSCULTATION BILATERALLY, NO WHEEZES, RHONCHI, RALES. HEART:NO MURMURS, REGULAR RATE AND RHYTHM. ASSESSMENTS MYALGIA, OTHER SITE - M79.18 (PRIMARY) TREATMENT MYALGIA, OTHER SITE CLINICAL NOTES: 53-YEAR-OLD MALE IN FOR POST TPI FOLLOW-UP. DISCUSSED DCS TRIAL AND THERAPEUTIC FACET BLOCK WITH PATIENT BOTH PROCEDURES WERE DECLINED. GIVEN PRESENTING SYMPTOMS AND RESULTS OF PHYSICAL EXAMINATION RECOMMEND FOLLOW-UP IN 2 MONTHS. PATIENT HAS EXPRESSED UNDERSTANDING OF AND WAS IN AGREEMENT WITH TREATMENT PLAN. GIVEN TIME TO ASK QUESTIONS AND EXPRESS CONCERNS. DISPOSITION & COMMUNICATION FOLLOW UP 2 MONTHS (REASON: BACK AND SHOULDER PAIN) ELECTRONICALLY SIGNED BY EITAN BARRERA ON 04/03/2019 AT 02:39 PM EST DISCLAIMER : THIS IS A VISIT SUMMARY EXTRACTED FROM THE [employer] CHART. IT IS NOT A COPY OF THE [employer] PROGRESS NOTE. LIZBETH
== END ==
LOC: M PAIN 14:00
PROVIDERS: ATTEND Family Medicine
DX: M79.18 Myalgia, other site (principal)

== ENCOUNTER → 2019-11-22 | Outpatient (REF) | payer MEDICARE | LOC: M LAB REF 09:26 | PROVIDERS: ATTEND Nurse Practitioner Family | DX: R31.9 Hematuria, unspecified (principal) ==

== ENCOUNTER → 2020-11-27 | Outpatient (REF) | payer MEDICARE | LOC: M LAB REF 17:18 | PROVIDERS: ATTEND Nurse Practitioner Family | DX: E83.42 Hypomagnesemia (principal) ==

== ENCOUNTER → 2021-03-10 | Outpatient (REF) | payer MEDICARE ==
[2021-03-10 16:12] LABS: BASO % 0.3 % (0.0-1.0); EOS # 0.1 10^3/uL (0.0-0.5); EOS % 2.3 % (0.0-3.0); HEMATOCRIT 47.5 % (42.0-52.0); HEMOGLOBIN 16.3 g/dl (13.5-17.5); LYMPH # 2.4 10^3/uL (1.5-5.0); LYMPH % 40.5 % (24.0-44.0); MEAN CORPUSCULAR HEMOGLOBIN 31.7 pg (27.0-33.0); MEAN CORPUSCULAR HGB CONC 34.3 g/dl (32.0-36.5); MEAN CORPUSCULAR VOLUME 92.4 fl (80.0-96.0); MONO # 0.6 10^3/uL (0.0-0.8); MONO % 9.6 % (2.0-8.0); NEUTROPHILS # 2.8 10^3/uL (1.5-8.5); PLATELET COUNT, AUTOMATED 246 10^3/uL (150-450); RED BLOOD COUNT 5.14 10^6/uL (4.30-6.10)
[2021-03-10 16:41] LABS: BLOOD UREA NITROGEN 10 MG/DL (7-18); CALCIUM LEVEL 8.9 MG/DL (8.5-10.1); CARBON DIOXIDE LEVEL 25 MEQ/L (21-32); CHLORIDE LEVEL 109 MEQ/L (98-107); CREATININE FOR GFR 1.16 MG/DL (0.70-1.30); GLOMERULAR FILTRATION RATE > 60.0 (>56); GLUCOSE, FASTING 133 MG/DL (70-100); POTASSIUM SERUM 3.9 MEQ/L (3.5-5.1); SODIUM LEVEL 141 MEQ/L (136-145)
[2021-03-10 21:29] LABS: ERYTHROCYTE SEDIMENTATION RATE 5 mm/hr (0-20)
== END ==
LOC: M SFHCPLAZ 15:27
PROVIDERS: ATTEND Internal Medicine Infectious Disease
DX: A69.20 Lyme disease, unspecified (principal)
CPT/HCPCS: 80048; 85025; 85652; 86140; G0463

== ENCOUNTER → 2021-07-31 | Outpatient (REF) | payer MEDICARE ==
[2021-07-31 17:27] LABS: BACTERIA, URINE AUTO NEGATIVE (NEGATIVE); RBC, URINE AUTO 0 /HPF (0-3); SQUAMOUS EPITHELIAL CELL UR AU 0 /HPF (0-6); WBC, URINE AUTO 0 /HPF (0-3)
== END ==
LOC: M LAB REF 17:12
PROVIDERS: ATTEND Nurse Practitioner Family
DX: R31.29 Other microscopic hematuria (principal)

== ENCOUNTER → 2022-07-23 | Outpatient (CLI) | payer MEDICARE | LOC: M WHC 12:45 | PROVIDERS: ATTEND Nurse Practitioner Family | DX: N18.32 Chronic kidney disease, stage 3b (principal) ==

== ENCOUNTER → 2022-10-23 | Outpatient (REF) | payer MEDICARE ==
[2022-10-23 16:45] LABS: APPEARANCE, URINE CLEAR (CLEAR); BACTERIA, URINE AUTO NEGATIVE (NEGATIVE); BILIRUBIN, URINE AUTO NEGATIVE (NEGATIVE); BLOOD, URINE BLOOD 1+ (NEGATIVE); COLOR, URINE YELLOW (YELLOW); GLUCOSE, URINE (UA) AUTO NEGATIVE (NEGATIVE); KETONE, URINE AUTO NEGATIVE (NEGATIVE); LEUKOCYTE ESTERASE, URINE AUTO NEGATIVE (NEGATIVE); NITRITE, URINE AUTO NEGATIVE (NEGATIVE); PROTEIN, URINE AUTO NEGATIVE (NEGATIVE); RBC, URINE AUTO 3 /HPF (0-3); SQUAMOUS EPITHELIAL CELL UR AU 0 /HPF (0-6); UROBILINOGEN, URINE AUTO 0.2 mg/dL (0.0-2.0); WBC, URINE AUTO 1 /HPF (0-3)
[2022-10-23 16:47] LABS: BASO % 0.3 % (0.0-1.0); EOS # 0.4 10^3/uL (0.0-0.5); HEMOGLOBIN 15.6 g/dl (13.5-17.5); LYMPH # 2.3 10^3/uL (1.5-5.0); LYMPH % 37.9 % (24.0-44.0); MEAN CORPUSCULAR HEMOGLOBIN 32.9 pg (27.0-33.0); MEAN CORPUSCULAR HGB CONC 33.9 g/dl (32.0-36.5); MONO # 0.6 10^3/uL (0.0-0.8); MONO % 9.1 % (2.0-8.0); NEUTROPHILS # 2.8 10^3/uL (1.5-8.5); NEUTROPHILS % 45.5 % (36.0-66.0); PLATELET COUNT, AUTOMATED 240 10^3/uL (150-450); RED BLOOD COUNT 4.74 10^6/uL (4.30-6.10); WHITE BLOOD COUNT 6.2 10^3/uL (4.0-10.0)
[2022-10-23 17:07] LABS: TOTAL PROTEIN,RANDOM URINE 6.9 MG/DL (0.0-14.0)
[2022-10-23 17:15] LABS: C REACTIVE PROTEIN QUANTITATIV < 0.40 MG/DL (<1.0); LDH LACTATE DEHYDROGENASE 199 U/L (120-246)
[2022-10-23 17:16] LABS: ALBUMIN 4.3 G/DL (3.2-5.2); ALKALINE PHOSPHATASE 83 U/L (46-116); ALT/SGPT 11 U/L (7.0-40); AST/SGOT 16 U/L (<34); BILIRUBIN,DIRECT 0.2 MG/DL (<0.4); BILIRUBIN,TOTAL 0.8 MG/DL (0.3-1.2); COMPLEMENT C3 136.3 MG/DL (90.0-170.0); TOTAL PROTEIN 7.3 G/DL (5.7-8.2)
[2022-10-23 17:36] LABS: ERYTHROCYTE SEDIMENTATION RATE 10 mm/hr (0-20)
== END ==
LOC: M SFHCRHEU 14:39
PROVIDERS: ATTEND Internal Medicine
DX: R76.8 Other specified abnormal immunological findings in serum (principal); M25.40 Effusion, unspecified joint; Z86.19 Personal history of other infectious and parasitic diseases; M62.81 Muscle weakness (generalized)

== ENCOUNTER → 2022-10-23 | Outpatient (CLI) | payer MEDICARE | LOC: M PLAIMG 15:27 | PROVIDERS: ATTEND Internal Medicine | DX: M19.031 Primary osteoarthritis, right wrist (principal); M19.032 Primary osteoarthritis, left wrist; M67.863 Other specified disorders of tendon, right knee; M67.864 Other specified disorders of tendon, left knee; M19.041 Primary osteoarthritis, right hand; M19.042 Primary osteoarthritis, left hand; M25.40 Effusion, unspecified joint; M25.50 Pain in unspecified joint ==

== ENCOUNTER → 2023-09-29 | Outpatient (CLI) | payer MEDICARE | LOC: M PLALAB 10:12 | PROVIDERS: ATTEND Internal Medicine | DX: R76.0 Raised antibody titer (principal); Z51.89 Encounter for other specified aftercare ==

== ENCOUNTER → 2023-12-30 | Outpatient (REF) | payer MEDICARE ==
[2023-12-30 13:00] LABS: APPEARANCE, URINE CLEAR (CLEAR); BACTERIA, URINE AUTO NEGATIVE (NEGATIVE); BILIRUBIN, URINE AUTO NEGATIVE (NEGATIVE); BLOOD, URINE BLOOD NEGATIVE (NEGATIVE); COLOR, URINE STRAW (YELLOW); GLUCOSE, URINE (UA) AUTO NEGATIVE (NEGATIVE); KETONE, URINE AUTO NEGATIVE (NEGATIVE); LEUKOCYTE ESTERASE, URINE AUTO NEGATIVE (NEGATIVE); NITRITE, URINE AUTO NEGATIVE (NEGATIVE); PROTEIN, URINE AUTO NEGATIVE (NEGATIVE); RBC, URINE AUTO 0 /HPF (0-3); SPECIFIC GRAVITY URINE AUTO 1.002 (1.002-1.035); SQUAMOUS EPITHELIAL CELL UR AU 0 /HPF (0-6); UROBILINOGEN, URINE AUTO 0.2 mg/dL (0.0-2.0); WBC, URINE AUTO 1 /HPF (0-3)
[2023-12-30 13:08] LABS: C REACTIVE PROTEIN QUANTITATIV < 0.40 MG/DL (<1.0)
[2023-12-30 13:09] LABS: ALBUMIN 4.5 G/DL (3.2-5.2); ALKALINE PHOSPHATASE 72 U/L (46-116); ALT/SGPT 18 U/L (7.0-40); AST/SGOT 24 U/L (<34); BILIRUBIN,DIRECT 0.6 MG/DL (<0.4); BILIRUBIN,TOTAL 1.3 MG/DL (0.3-1.2); BLOOD UREA NITROGEN 8 MG/DL (9-23); CALCIUM LEVEL 9.1 MG/DL (8.5-10.1); CARBON DIOXIDE LEVEL 30 MMOL/L (20-31); CHLORIDE LEVEL 104 MMOL/L (98-107); COMPLEMENT C3 119.1 MG/DL (90.0-170.0); COMPLEMENT C4 24.5 MG/DL (12-36); CREATININE FOR GFR 1.17 MG/DL (0.70-1.30); GLOMERULAR FILTRATION RATE > 60.0 (>56); GLUCOSE, FASTING 93 MG/DL (60-100); POTASSIUM SERUM 4.3 MMOL/L (3.5-5.1); SODIUM LEVEL 139 MMOL/L (136-145); TOTAL PROTEIN 7.2 G/DL (5.7-8.2)
[2023-12-30 13:10] LABS: BASO % 0.4 % (0.0-1.0); EOS # 0.3 10^3/uL (0.0-0.5); EOS % 6.2 % (0.0-3.0); HEMATOCRIT 45.2 % (42.0-52.0); HEMOGLOBIN 15.6 g/dl (13.5-17.5); LYMPH # 1.8 10^3/uL (1.5-5.0); LYMPH % 39.1 % (24.0-44.0); MEAN CORPUSCULAR HEMOGLOBIN 33.3 pg (27.0-33.0); MEAN CORPUSCULAR HGB CONC 34.5 g/dl (32.0-36.5); MEAN CORPUSCULAR VOLUME 96.4 fl (80.0-96.0); MONO # 0.5 10^3/uL (0.0-0.8); MONO % 10.8 % (2.0-8.0); NEUTROPHILS % 43.3 % (36.0-66.0); PLATELET COUNT, AUTOMATED 211 10^3/uL (150-450); RED BLOOD COUNT 4.69 10^6/uL (4.30-6.10); WHITE BLOOD COUNT 4.6 10^3/uL (4.0-10.0)
[2023-12-30 13:17] LABS: HEPATITIS B SURFACE ANTIBODY NEGATIVE (POSITIVE)
[2023-12-30 13:25] LABS: ERYTHROCYTE SEDIMENTATION RATE 6 mm/hr (0-20)
[2023-12-30 13:28] LABS: HEPATITIS B SURFACE ANTIGEN NEGATIVE (NEGATIVE)
[2023-12-30 13:33] LABS: CREATININE,RANDOM URINE 23.9 MG/DL
[2023-12-30 13:40] LABS: TOTAL PROTEIN,RANDOM URINE < 6.0 MG/DL (0.0-14.0)
[2023-12-30 13:49] LABS: HEPATITIS C VIRUS ABY INDEX 0.15 INDEX (<0.8)
[2023-12-30 13:55] LABS: CPK CREATINE PHOSPHOKINASE 290 U/L (46-171)
[2024-01-01 11:17] LABS: HEPATITIS B CORE ANTIBODY IGG NON-REACTIVE (NON-REACTIVE)
[2024-01-02 13:53] LABS: QuantiFERON-TB Gold Plus NEGATIVE (NEGATIVE)
[2024-01-03 16:02] LABS: ALDOLASE 5.4 U/L (< OR = 8.1)
[2024-01-03 23:58] LABS: COMPLEMENT TOTAL (CH50) 58 U/mL (31-60)
== END ==
LOC: M SFHCRHEU 10:42
PROVIDERS: ATTEND Internal Medicine
DX: Z11.1 Encounter for screening for respiratory tuberculosis (principal); R76.8 Other specified abnormal immunological findings in serum; M62.81 Muscle weakness (generalized); Z11.59 Encounter for screening for other viral diseases; M25.50 Pain in unspecified joint; M79.641 Pain in right hand; M79.642 Pain in left hand

== ENCOUNTER → 2024-07-04 | Outpatient (REF) | payer MEDICARE ==
[2024-07-04 16:17] LABS: C REACTIVE PROTEIN QUANTITATIV < 0.50 MG/DL (<1.0)
[2024-07-04 16:21] LABS: TOTAL 25(OH) VITAMIN D 45.5 NG/ML (20.0-100.0)
== END ==
LOC: M SFHCRHEU 13:48
PROVIDERS: ATTEND Internal Medicine
DX: M62.81 Muscle weakness (generalized) (principal); R76.8 Other specified abnormal immunological findings in serum

== ENCOUNTER → 2024-08-01 | Outpatient (REF) | payer MEDICARE ==
[2024-08-01 17:32] LABS: BACTERIA, URINE AUTO NEGATIVE (NEGATIVE); RBC, URINE AUTO 0 /HPF (0-3); SQUAMOUS EPITHELIAL CELL UR AU 0 /HPF (0-6); WBC, URINE AUTO 1 /HPF (0-3)
== END ==
LOC: M LAB REF 16:55
PROVIDERS: ATTEND Nurse Practitioner Family
DX: R31.29 Other microscopic hematuria (principal)

== ENCOUNTER → 2024-11-07 | Outpatient (REF) | payer MEDICARE | LOC: M SFHCRHEU 12:23 | PROVIDERS: ATTEND Internal Medicine | DX: M62.81 Muscle weakness (generalized) (principal) ==

== ENCOUNTER → 2024-11-29 | Outpatient (REF) | payer MEDICARE ==
[2024-11-29 18:19] LABS: VITAMIN B12 LEVEL 744.0 PG/ML (211-911)
== END ==
LOC: M LAB REF 17:14
PROVIDERS: ATTEND Nurse Practitioner Family
DX: D51.9 Vitamin B12 deficiency anemia, unspecified (principal)